=== PATIENT | male | born 1950 | race Caucasian/White ===

== ENCOUNTER 2023-07-09 17:57 | Emergency (ER) | payer OTHER, SELFPAY ==
[2023-07-09 18:15] VITALS: BP 147/97
[2023-07-09] MEDS: TOBREX 0.3% EYE DROPS 1 DROP OPHTH (19:35)
--- NOTE | 2023-07-09 20:07 | ED.GENMED ---
History of Present Illness
General
Chief Complaint: Eye Problems
Source: patient
Exam Limitations: none
Time Seen by Provider: 07/09/23 19:10
Nursing documentation reviewed up to this point in time: agreed with
Travel History
Have you had any contact with someone who has COVID-19?: No
Do you have any symptoms of coronavirus? Fever > 100 degrees, chills, cough, shortness of breath, sore throat, loss of taste or smell, muscle aches, or headache?: No
History of Present Illness
History of Present Illness:
P)atient to ED with complaint of redness, itchiness, drainge from left eye. Symptoms started last week. He has been using OTC visine with temporary relief of itching. Denies any historyo f trauma. To ED accompanied by for eval.
Past History
Past History
ED Past Medical History: CVA, HTN and Hypercholesterolemia
ED Past Surgical History: Orthopedic and Other
Social History
Tobacco: Non-smoker
Alcohol: None
Drug: None
Personal:
Review of Systems
Review of Systems
Allergies reviewed?: Yes
All Other Systems: ROS reviewed and negative except as documented in HPI and ROS
Constitutional: Reports no symptoms
EENT: Reports other (redness, itching, drainage left eye)
Respiratory: Reports no symptoms
Cardiac: Reports no symptoms
ABD/GI: Reports no symptoms
: Reports no symptoms
Musculoskeletal: Reports no symptoms
Skin: Reports no symptoms
Neurological: Reports no symptoms
Psychiatric: Reports no symptoms
Phy Exam
General Physical Exam
General Presentation: well appearing and no apparent distress
General age: appears stated age
General Skin: warm and dry
General Habitus: normal
General Mental: alert
General Hydration: appears well hydrated
Eye Exam
Eye Exam: PERRL, EOMI, cornea clear, globe normal and other (conjunctival injection left medial eye. No swelling. Most pruritic at inner canthus. Lids everted, swept with qtip, no fb. )
Eye Exam General: PERRL: bilateral
Conjunctival Changes: left: watery discharge and local crusting
Type of Exam: slit lamp, simple and fluorescein
Musculoskeletal Exam
Musculoskeletal Exam: full ROM and neuro vasc intact
Skin Exam
Skin Exam: normal color, warm/dry and no rash
Psychiatric Exam
Psychiatric Exam: normal mood/affect
Course
Orders/Labs/Results
Orders:
Orders
07/09/23 19:29
Tobramycin 0.3% [Tobrex 0.3% Eye Drops] See Dose Instructions OPHTH NOW STA
07/09/23 19:44
Tetracaine HCl [Tetracaine 0.5% Ophthalmic Solution] 1 drop .ROUTE .STK-MED ONE
07/09/23 19:45
Fluorescein Sodium [Ful-Gabriella] 1 mg .ROUTE .STK-MED ONE
Vital Signs
Initial and Last Documented VS:
Initial Vital Signs
Temp Pulse Resp BP Pulse Ox
98.0 F 68 16 147/97 98
07/09/23 18:15 07/09/23 18:15 07/09/23 18:15 07/09/23 18:15 07/09/23 18:15
Last Documented Vital Signs
Temp Pulse Resp BP Pulse Ox
98.0 F 68 16 147/97 98
07/09/23 18:15 07/09/23 18:15 07/09/23 18:15 07/09/23 18:15 07/09/23 18:15
*Critical Care Note
Total Time (30-74mins, 75-104mins- exclusive of procedures): Not Applicable
ED Attending Note
-
Portions of this chart may have been created with voice recognition software.� Occasional wrong word or��sound alike� substitutions may have occurred due to the inherent limitations of voice recognition software.
Discharge Plan
Departure
Patient Disposition: Home (Routine Discharge)
Date of Disposition: 07/09/23
Time of Disposition: 19:30
Patient with high blood pressure during this ER visit?: No
Condition: Good
Covid-19: Not Applicable
Discharge Problem:
Conjunctivitis
Instructions: How to Use Eye Drops, Conjunctivitis (Noninfectious Pinkeye) (DC)
Prescriptions:
New
olopatadine [Eye Allergy Itch-Redness Rlf] 0.1 % drops
1 drp ophthalmic (eye) BID Qty: 5 0RF
tobramycin 0.3 % drops
1 drp ophthalmic (eye) Q4HWA Qty: 5 0RF
No Action
multivitamin 1 EACH tablet
1 ea PO DAILY
atorvastatin 80 MG tablet
80 mg PO QPM
lisinopril 20 MG tablet
20 mg PO DAILY
amlodipine 5 MG tablet
5 mg PO DAILY
flaxseed oil 1,000 MG capsule
1,000 mg PO DAILY
aspirin 81 MG tablet,chewable
81 mg PO DAILY
hydrochlorothiazide 25 MG tablet
25 mg PO DAILY
cholecalciferol (vitamin D3) [Vitamin D3] 1,000 UNIT capsule
2,000 unit PO DAILY
fenofibrate nanocrystallized 145 MG tablet
145 mg PO DAILY
Referrals:
Matthias Sainz MD [Active] - Next open appointment
Interventions
Interventions:
*ED COVID-19 Vaccine History Last Done: 07/09/23 18:15
Discharge Date and Time
Print Language: DIVEHI
== END 2023-07-09 20:25 | disposition home or self-care (01) ==
LOC: EMR 17:57
PROVIDERS: EMERGENCY PHYSICIAN Emergency Medicine; FAMILY PHYSICIAN Nurse Practitioner Adult Health
DX: H10.9 Unspecified conjunctivitis (principal)
CPT/HCPCS: 99283

== ENCOUNTER → 2023-07-25 12:00 | Outpatient (REF) | payer OTHER, SELFPAY | LOC: DHSLP 12:00 | PROVIDERS: ATTENDING PHYSICIAN Internal Medicine; FAMILY PHYSICIAN Nurse Practitioner Adult Health | DX: G47.33 Obstructive sleep apnea (adult) (pediatric) (principal); G47.31 Primary central sleep apnea; R09.02 Hypoxemia | CPT/HCPCS: 95800 ==

== ENCOUNTER 2023-09-29 00:45 | Emergency (ER) | payer OTHER, SELFPAY ==
[2023-09-29 00:47] VITALS: BP 149/92
--- NOTE | 2023-09-29 01:05 | ED.MUSCINJ ---
HPI-Injury
<KATARINA Boone - Last Filed: 09/29/23 01:20>
General
Chief Complaint: Fall
Time Seen by Provider: 09/29/23 00:54
History of Present Illness-Injury
Initial Injury comments:
Pt is a 73 y/o male presenting after a fall at home 1 hour ago. He states he missed a step and fell down 1 step landing on his right side. He states he has been experiencing abdominal pain since the fall. He states the pain is located to the
mid/upper abdomen. He states the pain only occurs if he is leaning forward or he coughs. He has not taken anything to relieve the pain. He also notes superficial scrapes on his right knee and right elbow but states these are not concerning. He
denies any hitting his head, LOC, dizziness, vision changes, SOB, chest pain, nausea, or vomiting.
Past History
<KATARINA Boone - Last Filed: 09/29/23 01:20>
Past History
ED Past Medical History: CVA, HTN and Hypercholesterolemia
ED Past Surgical History: Orthopedic and Other
Social History
Tobacco: Non-smoker
Alcohol: None
Drug: None
Personal:
Phy Exam
<KATARINA Boone - Last Filed: 09/29/23 01:20>
Physical Exam
Physical Exam:
GENERAL: Alert , in no apparent distress
EYE: pupils equal and reactive
Throat: Airway intact, no exudates
NECK: Supple, no significant adenopathy.
CARDIAC: Regular rate and rhythm .
LUNGS: Clear breath sounds bilaterally, no acute respiratory distress, no wheezes/rales/rhonchi
ABDOMEN: Pain with palpation to the mid upper abdomen/lower ribs. Soft, nondistended, no cvat
NEUROLOGICAL: Alert and oriented, no focal neuro deficits
SKIN: Warm and dry, skin intact.
MUSCULOSKELETAL: Superficial abrasions to the right lateral knee and right elbow. No edema, well perfused.
PSYCH: Normal and appropriate interaction.
Injury Course
<KATARINA Boone - Last Filed: 09/29/23 01:20>
Orders/Labs/Results
Orders:
Orders
09/29/23 01:17
Ribs, Right 3 View W/PA Chest [CR Ribs-right 3 Vw W/pa Chest*] Urgent
Comment:
Reason For Exam: fall pain
09/29/23 01:18
Ondansetron Orally Disint [Zofran Odt (Orally Disintegrating)] 4 mg PO NOW STA
Oxycodone/Acetaminophen [Percocet 5/325] 1 tablet PO NOW STA
09/29/23 02:10
Ibuprofen [Motrin] 600 mg PO NOW STA
<Cb Almazan DO - Last Filed: 09/29/23 02:16>
Orders/Labs/Results
Orders:
Orders
09/29/23 01:17
Ribs, Right 3 View W/PA Chest [CR Ribs-right 3 Vw W/pa Chest*] Urgent
Comment:
Reason For Exam: fall pain
09/29/23 01:18
Ondansetron Orally Disint [Zofran Odt (Orally Disintegrating)] 4 mg PO NOW STA
Oxycodone/Acetaminophen [Percocet 5/325] 1 tablet PO NOW STA
09/29/23 02:10
Ibuprofen [Motrin] 600 mg PO NOW STA
<Cb Almazan DO - Last Filed: 09/29/23 02:16>
MDM/Problems Addressed
Differential Diagnosis Includes:
Rib contusion rib fracture pneumothorax less likely intra-abdominal trauma
MDM/Problems Addressed:
Fall rib pain
Chronic conditions affecting care: HTN
Acute Exacerbation and/or Progression of Chronic Illness: HTN
<Cb Almazan DO - Last Filed: 09/29/23 02:16>
*Radiology
Radiology exam reviewed: preliminary read by ED provider
*Pulse Oximetry
Patient hypoxic: no
*Manufacturing Baker Interpretation
Rate: Manufacturing Baker- N/A
*Critical Care Note
Total Time (30-74mins, 75-104mins- exclusive of procedures): Not Applicable
<Cb Almazan DO - Last Filed: 09/29/23 02:16>
Update Note
Update Note:
2 AM, x-ray noted no obvious pneumo or rib fracture, reviewed with patient, he is feeling better, his abdomen is soft and nontender still has some mild reproducible pain on his right lower ribs reviewed possibility for nonvisualized rib fracture,
discharged home with analgesics, follow-up PCP as needed ER for increased shortness of breath and/or any abdominal pain
ED Attending Note
<KATARINA Boone - Last Filed: 09/29/23 01:20>
-
Portions of this chart may have been created with voice recognition software.� Occasional wrong word or��sound alike� substitutions may have occurred due to the inherent limitations of voice recognition software.
<Cb Almazan DO - Last Filed: 09/29/23 02:16>
ED Attending Note
Patient seen and examined by attending physician: Yes
I performed the substantive portion of visit, reviewed & personally made and approve the management plan that is documented in note by myself or MANAV.: Yes
ED Attending Note:
seen with student, examined independently agree with assessment and plan 73-year-old male status post slip and fall down a step struck his right ribs on the ground will get knocked out of no loss of conscious no head strike no neck pain no arm or
leg weakness his pain when he takes a deep breath reproducible pain in the right lower rib cage, no abdominal pain no nausea or vomiting will check x-ray and rib series, provide analgesia serial abdominal exams
Discharge Plan
Departure
Patient Disposition: Home (Routine Discharge)
Date of Disposition: 09/29/23
Time of Disposition: 02:12
Patient with high blood pressure during this ER visit?: No
Condition: Good
Covid-19: Not Applicable
Discharge Problem:
Chest wall contusion
Instructions: Blunt Chest Trauma, Bruised Lung
Prescriptions:
New
ibuprofen 600 mg tablet
600 mg PO Q8H PRN (Reason: Pain) Qty: 20 0RF
ondansetron 4 mg tablet,disintegrating
4 mg PO TIDPRN PRN (Reason: nausea/vomiting) Qty: 10 0RF
oxycodone-acetaminophen [Percocet] 5-325 mg tablet
1 tab PO Q6HPRN PRN (Reason: pain) Qty: 10 0RF
No Action
multivitamin 1 EACH tablet
1 ea PO DAILY
atorvastatin 80 MG tablet
80 mg PO QPM
lisinopril 20 MG tablet
20 mg PO DAILY
amlodipine 5 MG tablet
5 mg PO DAILY
flaxseed oil 1,000 MG capsule
1,000 mg PO DAILY
aspirin 81 MG tablet,chewable
81 mg PO DAILY
hydrochlorothiazide 25 MG tablet
25 mg PO DAILY
cholecalciferol (vitamin D3) [Vitamin D3] 1,000 UNIT capsule
2,000 unit PO DAILY
fenofibrate nanocrystallized 145 MG tablet
145 mg PO DAILY
olopatadine [Eye Allergy Itch-Redness Rlf] 0.1 % drops
1 drp ophthalmic (eye) BID Qty: 5 0RF
tobramycin 0.3 % drops
1 drp ophthalmic (eye) Q4HWA Qty: 5 0RF
Referrals:
UNKNOWN - PT NOT,INTERVIEWE [Unknown Provider] -
Activity Restrictions/Additional Instructions:
Return to the ER for worsening symptoms including shortness of breath or abdominal pain
Interventions
Interventions:
*Risk Screen - Suicide Last Done: 09/29/23 00:50
*General Assessment Last Done: 09/29/23 00:50
*Neglect/Abuse Screening Last Done: 09/29/23 00:50
ED- Fall Risk Assessment Last Done: 09/29/23 01:21
ED- Cardiac Assessment Last Done: 09/29/23 01:21
ED-Musculoskeletal Assessment Last Done: 09/29/23 01:21
ED- Neurological Assessment Last Done: 09/29/23 01:21
ED- Pulmonary Assessment Last Done: 09/29/23 01:21
ED-Skin Assessment Last Done: 09/29/23 01:20
Discharge Date and Time
Print Language: SLOVENIAN
[2023-09-29] MEDS: PERCOCET 5/325 1 TABLET PO (01:26)
[2023-09-29] MEDS: ZOFRAN ODT (ORALLY DISINTEGRATING) 4 MG PO (01:27)
[2023-09-29] MEDS: MOTRIN 600 MG PO (02:14)
== END 2023-09-29 02:35 | disposition home or self-care (01) ==
LOC: EMR 00:45
PROVIDERS: EMERGENCY PHYSICIAN Emergency Medicine; FAMILY PHYSICIAN Nurse Practitioner Adult Health
DX: S20.219A Contusion of unspecified front wall of thorax, initial encounter (principal); W10.9XXA Fall (on) (from) unspecified stairs and steps, initial encounter; I10 Essential (primary) hypertension
CPT/HCPCS: 99283; 71101

== ENCOUNTER → 2024-07-17 09:09 | Outpatient (REF) | payer OTHER, SELFPAY | LOC: HWRCS 09:09 | PROVIDERS: ATTENDING PHYSICIAN Internal Medicine Cardiovascular Disease; FAMILY PHYSICIAN Nurse Practitioner Adult Health | DX: I77.810 Thoracic aortic ectasia (principal) | CPT/HCPCS: 93306 ==

== ENCOUNTER → 2024-11-04 09:13 | Outpatient (REF) | payer OTHER, SELFPAY | LOC: EMG 09:13 | PROVIDERS: ATTENDING PHYSICIAN Nurse Practitioner Adult Health | DX: R20.0 Anesthesia of skin (principal); G52.2 Disorders of vagus nerve | CPT/HCPCS: 95886; 95909 ==

== ENCOUNTER → 2024-12-04 14:23 | Outpatient (REF) | payer OTHER, SELFPAY | LOC: HWRAD 14:23 | PROVIDERS: ATTENDING PHYSICIAN Orthopaedic Surgery Hand Surgery; FAMILY PHYSICIAN Nurse Practitioner Adult Health | DX: M12.812 Other specific arthropathies, not elsewhere classified, left shoulder (principal) | CPT/HCPCS: 73200 ==

== ENCOUNTER 2024-12-09 06:02 | Day surgery (SDC) | payer OTHER, SELFPAY ==
--- NOTE | 2024-11-24 14:34 | CM ---
Addendum entered by Chitra Lim RN 11/24/24 15:12:
Demographics: confirmed
Living situation: lives with , split levels
Support Person Post Operatively:
History of
VN: Hx, not currently on service
SNF: no
Outpatient: Hx at [facility]
Has patient purchased required equipment: yes
PCP: Tamia
Pharmacy: [facility]
Post Operative Discharge Plan: Home with , outpatient PT when surgically cleared.
Original Note:
CM left message for orthopedic [place].
[2024-11-25 14:08] VITALS: BMI 33.7
[2024-11-25 14:41] LABS: Hematocrit 43.2 % (39.0-52.0); Hemoglobin 14.1 g/dL (13.0-18.0); Mean Corp Hgb Conc. 32.6 g/dL (33.0-37.0); Mean Corpuscular Volume 83.1 fL (80.0-94.0); Platelet Count 245 10^3/uL (130-400); Red Cell Dist. Width 15.5 % (11.5-14.5)
[2024-11-25 15:46] LABS: ALT (SGPT) 20 U/L (0-50); AST (SGOT) 23 U/L (17-59); Albumin 4.6 g/dl (3.5-5.0); Alkaline Phosphatase 47 U/L (38-126); Blood Urea Nitrogen 28 mg/dl (9-20); Calcium 9.5 mg/dl (8.4-10.2); Carbon Dioxide 29 mmol/L (22-30); Chloride 105 mmol/L (98-107); Estimated Creatinine Clearance 58 ml/min; Glucose 94 mg/dl (70-99); Potassium 4.5 mmol/L (3.5-5.1); Sodium 140 mmol/L (135-145); Total Protein 7.5 g/dl (6.3-8.2); eGFR 57.29
[2024-11-25 17:15] VITALS: BMI 33.7
[2024-11-26 08:40] LABS: Glycohemoglobin (HgbA1c) 5.5 % (4.0-5.6)
[2024-12-09] VITALS (11 sets, daily range): BP systolic 122–137; BP diastolic 74–89; BMI 33.7
[2024-12-09] MEDS: MOBIC 15 MG PO (07:10)
[2024-12-09] MEDS: NORMOSOL-R/PLASMALYTE-A 1000 IV (07:10)
[2024-12-09] MEDS: TYLENOL 1000 MG PO (07:10)
[2024-12-09] MEDS: ANCEF 5 IV (12:02)
== END 2024-12-09 10:00 | disposition home or self-care (01) ==
LOC: SDS 06:02
PROVIDERS: ATTENDING PHYSICIAN Orthopaedic Surgery Hand Surgery; FAMILY PHYSICIAN Nurse Practitioner Adult Health
DX: M19.012 Primary osteoarthritis, left shoulder (principal); G56.02 Carpal tunnel syndrome, left upper limb; Z96.612 Presence of left artificial shoulder joint
CPT/HCPCS: 23472; C1776; C1713; 36415; 73020; 80053; 83036; 85027; 87070; 93005